=== PATIENT | female | born 1940 | race Two or more races ===

== ENCOUNTER 2017-09-29 14:26 | Outpatient (CLI) | payer OTHER | END 2017-09-29 14:33 | disposition home or self-care (01) | LOC: MRI 14:26 | DX: R41.3 Other amnesia (principal) | CPT/HCPCS: 70551 ==

== ENCOUNTER 2022-06-18 01:55 | Emergency (ER) | payer OTHER ==
[~2022-06-18] VITALS: Ht 157.5 cm; Wt 63.5 kg
[2022-06-18] MEDS ORDERED: TRAZIMERA150 MG (02:13)
[2022-06-18] MEDS ORDERED: COZAAR50 MG (02:13)
[2022-06-18] MEDS ORDERED: MEMANTINE HCL10 MG (02:13)
[2022-06-18] MEDS ORDERED: LEVOTHYROXINE (02:14)
[2022-06-18] MEDS ORDERED: ATORVASTATIN CA10 MG (02:14)
[2022-06-18] MEDS ORDERED: PLAVIX75 MG (02:14)
[2022-06-18] MEDS ORDERED: DONEPEZIL HCL23 MG (02:14)
[2022-06-18] MEDS ORDERED: ALBUTEROL2.5 MG/3 M IH (05:58)
[2022-06-18] MEDS ORDERED: ZYNCOF 20-400120 ML PO (05:58)
== END 2022-06-18 09:27 ==
LOC: ER 01:55
DX: U07.1 COVID-19 (principal); R05.9 Cough, unspecified; I10 Essential (primary) hypertension; G30.8 Other Alzheimer's disease; F02.80 Dementia in other diseases classified elsewhere, unspecified severity, without behavioral disturbance, psychotic disturbance, mood disturbance, and anxiety